=== PATIENT | female | born 1975 | race Caucasian/White ===

== ENCOUNTER 2019-04-19 11:27 | Emergency (ER) | payer BC ==
[~2019-04-19] VITALS: Wt 120.0 kg
[~2019-04-19 11:27] MED LIST: BACL10TA PO; CYCL10TA7 PO; NAPR-985 PO; TRAM50TA2 PO
[2019-04-19 11:32] VITALS: BP 140/78; PULSE 89; RESP 18
== END 2019-04-19 14:24 | disposition home or self-care (01) ==
LOC: FTE 11:27
DX: M54.6 Pain in thoracic spine (principal)
CPT/HCPCS: 99283